=== PATIENT | female | born 1945 | race Caucasian/White ===

== ENCOUNTER 2018-03-07 10:57 | Emergency (ER) | payer OTHER ==
[~2018-03-07] VITALS: Ht 152.4 cm; Wt 90.0 kg
[~2018-03-07 10:57] MED LIST: CHOLESTYRAMINE4 GM PO; CLINDAMYCIN300 M1 PO; FIORICET PO; PANTOPRAZOLE SO40 MG PO; PERINDOPRIL PO; PRILOSEC OTC20 MG OR; QUESTRAN4 G1 OR
[2018-03-07 11:40] VITALS: BP 176/88
== END 2018-03-07 11:45 | disposition home or self-care (01) | DRG 563 ==
LOC: ED 10:57
DX: S63.502A Unspecified sprain of left wrist, initial encounter (principal); W01.0XXA Fall on same level from slipping, tripping and stumbling without subsequent striking against object, initial encounter; Y93.41 Activity, dancing; Y92.838 Other recreation area as the place of occurrence of the external cause